=== PATIENT | male | born 1970 | race Caucasian/White ===

== ENCOUNTER 2018-12-17 07:19 | Emergency (ER) | payer OTHER ==
[~2018-12-17] VITALS: Ht 167.6 cm; Wt 77.0 kg
[2018-12-17] MEDS ORDERED: SODIUM CHLORIDE 0.9% 1,000 ML IV ONE (07:57)
[2018-12-17 08:14] LABS: BASOPHILS % 0.3 % (0.0-2.0); EOSINOPHILS % 0.2 % (0.0-5.0); HEMATOCRIT. 44.2 % (42.0-52.0); HEMOGLOBIN. 15.5 g/dL (14.0-18.0); LYMPHOCYTES % 20.1 % (20.0-50.0); MEAN CORPUSCULAR VOLUME 88.5 fL (80.0-94.0); MEAN PLATELET VOLUME 11.2 fl (7.4-10.4); MONOCYTES % 6.3 % (2.0-8.0); NEUTROPHILS % 73.1 % (40.0-76.0); PLATELET 128 x1000/uL (130-400); RED BLOOD CELL COUNT 4.99 mill/uL (4.7-6.1); RED CELL DISTRIBUTION WIDTH 12.7 % (11.6-14.6)
[2018-12-17 08:22] LABS: CHLORIDE 106 mEq/L (98-107)
[2018-12-17 11:15] VITALS: BP 123/75
== END 2018-12-17 11:20 | disposition home or self-care (01) ==
LOC: ER 07:19
DX: F41.1 Generalized anxiety disorder (principal); R07.89 Other chest pain; F43.0 Acute stress reaction; F43.22 Adjustment disorder with anxiety; Z90.49 Acquired absence of other specified parts of digestive tract
CPT/HCPCS: 36415; 71045; 80053; 84484; 85025; 93005; 99284; J7030